=== PATIENT | female | born 1965 | race Caucasian/White ===

== ENCOUNTER 2023-07-11 05:32 | Outpatient (CLI) | payer MEDICARE ==
[~2023-07-11] VITALS: Ht 152.4 cm; Wt 89.8 kg
[2023-07-11] MEDS ORDERED: ROSU40TA23 PO (12:24)
[2023-07-11] MEDS ORDERED: ESTR1TAB24 PO (12:24)
[2023-07-11] MEDS ORDERED: OXYB10TA29 PO (12:24)
[2023-07-11] MEDS ORDERED: SERT200C PO (12:24)
[2023-07-11] MEDS ORDERED: CETI10TA17 PO (12:24)
== END 2023-07-11 12:27 | disposition home or self-care (01) ==
LOC: PREOP 05:32
PROVIDERS: ATTEND Surgery
DX: Z01.818 Encounter for other preprocedural examination (principal)

== ENCOUNTER 2023-07-20 11:54 | Day surgery (SDC) | payer MEDICARE ==
[~2023-07-20] VITALS: Ht 152.4 cm; Wt 89.8 kg
[~2023-07-20 11:54] MED LIST: CETI10TA17 PO; ESTR1TAB24 PO; OXYB10TA29 PO; ROSU40TA23 PO; SERT200C PO
[2023-07-20] MEDS ORDERED: LACTATED RINGERS 1,000 ML 1,000 ML IV STA (12:04)
[2023-07-20] MEDS ORDERED: LACTATED RINGERS 1,000 ML 1,000 ML IV ONE (12:11)
[2023-07-20 12:15] VITALS: BP 123/67
--- NOTE | 2023-07-20 14:06 | Progress Note-Pre Operative ---
Pre-Operative Progress Note Date H&P Reviewed: Jul 20, 2023 Time H&P Reviewed: 14:06 History & Physical: H&P Reviewed, Patient Examed, No changes noted Pre-Operative Diagnosis: hx of polyps CHERYL CONTEH DO Jul 20, 2023 14:06
--- NOTE | 2023-07-20 14:40 | Progress Note-Post Operative ---
Post-Operative Progess Note Surgeon (s)/Loader Technician (s) Surgeon CHERYL CONTEH DO Loader Technician: na Pre-Operative Diagnosis hx of polyps Post-Operative Diagnosis colon polyps Procedure & Operative Findings Date of Procedure 07/20/23 Procedure Performed/Findings colonoscopy with hot bx polypectomy x 3 Anesthesia Type per public safety officer Estimated Blood Loss Estimated blood loss (mL): none Specimens/Packing Specimens Removed colon polyps CHERYL CONTEH DO Jul 20, 2023 14:40
--- NOTE | 2023-07-20 14:44 | Discharge Inst-Simple/Standard ---
Discharge Inst-Standard Patient Instructions/Follow Up Plan of Care/Instructions/FU: 2 weeks li Activity as Tolerated: Yes Discharge Diet: Regular Diet CHERYL CONTEH DO Jul 20, 2023 14:44
[2023-07-20 14:45] VITALS: BP 117/66
--- NOTE | 2023-07-20 14:48 | Anesthesia-General Post-Op ---
MAC Patient Condition Mental Status/LOC: Same as Preop Cardiovascular: Satisfactory Nausea/Vomiting: Absent Respiratory: Satisfactory Pain: Controlled Complications: Absent Post Op Complications Complications None Follow Up Care/Instructions Patient Instructions None needed. Anesthesiology Discharge Order Discharge Order Patient is doing well, no complaints, stable vital signs, no apparent adverse anesthesia problems. No complications reported per nursing. RACHAEL KEENE CRNA Jul 20, 2023 14:48
[2023-07-20 14:50] VITALS: BP 117/66
[2023-07-20 15:05] VITALS: BP 117/66
--- NOTE | 2023-07-20 21:15 | OPERATIVE REPORT ---
DATE OF SERVICE: 07/20/2023 PREOPERATIVE DIAGNOSIS: History of polyps. POSTOPERATIVE DIAGNOSIS: Colon polyps. PROCEDURE: Colonoscopy with hot biopsy polypectomy x3. SURGEON: Cheryl Torres DO ANESTHESIA: Per CONSTRUCTION ENGINEER. ESTIMATED BLOOD LOSS: None. COMPLICATIONS: None. INDICATIONS: The patient is a 57-year-old female with history of polyps. She understands risks and benefits of procedure and wished to proceed. Consent was signed in chart. DESCRIPTION OF PROCEDURE: The patient was taken to endoscopy suite, placed in left lateral recumbent position. Timeout was performed. Digital rectal exam was performed. No palpable polyps, masses or ulcerations. Scope was inserted in the rectum, advanced all the way to the cecum with minimal difficulty. Prep was adequate. Scope was slowly retracted back. No polyps, masses or ulcerations in the cecum, ascending, transverse colon. Descending colon had 2 small polyps, which hot biopsy polypectomies were performed. Scope was then continuously retracted back into the sigmoid colon where another polyp was present, which hot biopsy polypectomy was performed. Scope was then continued to be slowly retracted back. No polyps, masses or ulcerations in the remainder of the sigmoid and rectum. Once in the rectum, scope was retroflexed noting no other pathology. Scope was returned to its normal position, slowly withdrawn until completely removed. The patient tolerated the procedure well without complications, taken to recovery room in stable condition. RECOMMENDATIONS: The patient will need repeat colonoscopy in 5 years. Any issues before that, be seen at that time. We will follow up on pathology in 2 weeks. Job ID: [id number] DocumentID: [id number] Dictated Date: 07/20/2023 14:46:59 Automotive Product Engineer Date: 07/20/2023 21:13:00 Dictated By: CHERYL TORRES DO
== END 2023-07-20 15:05 | disposition home or self-care (01) ==
LOC: ENDO 11:54
PROVIDERS: ATTEND Surgery
DX: Z12.11 Encounter for screening for malignant neoplasm of colon (principal); D12.4 Benign neoplasm of descending colon; D12.5 Benign neoplasm of sigmoid colon
CPT/HCPCS: 88305